=== PATIENT | female | born 1975 | race Caucasian/White ===

== ENCOUNTER 2017-09-22 21:34 | Emergency (ER) | payer MEDICARE, MEDICAID ==
[~2017-09-22] VITALS: Ht 165.1 cm; Wt 199.0 kg
[2017-09-22 21:45] VITALS: BP 183/96; PULSE 96; RESP 18; TEMP 98; O2SAT 95
[2017-09-22] MEDS ORDERED: predniSONE 50 MG TAB PO ONE (22:00)
--- NOTE | 2017-09-22 22:06 | PD ---
HPI Chief Complaint: Respiratory Symptoms Time Seen by Provider: 21:52 Travel History International Travel<30 days: No Contact w/Intl Traveler<30days: No Traveled to known affect area: No History of Present Illness HPI The patient is a 42-year-old female who presents emergency department for shortness of breath, cough, and wheezing. The patient has a history of asthma and cigar use, last smoked a cigar this morning. The patient is a 3 day history of a mostly dry nonproductive cough, wheezing, mild shortness of breath. The patient does have a previous history of pneumonia and bronchitis. She denies any nausea, vomiting, or abdominal pain. However, she does note occasional diarrhea. She denies any dysuria. She denies any history of pulmonary embolus or DVT. The patient does not have a primary physician in the local area and states her albuterol inhaler is . The patient denies any chest pain, acute lower extremity edema, or history of pulmonary was up, DVT, or congestive heart failure. The patient also states she ran out of her high blood pressure medications, cannot recall the name of the medicine, but states it was 10 mg and was a white pill. PFSH Past Medical History Narrative Medical Asthma, hypertension Respiratory: Yes (asha) ?: Not Past Surgical History Narrative Surgical Oral surgery with extraction of teeth Social History Tobacco Use: Yes Allergies-Medications (Allergen,Severity, Reaction): Coded Allergies: azithromycin (Verified Allergy, Unknown, 09/22/17) kidney pains Reported Meds & Prescriptions Reported Meds & Active Scripts Active Reported Triamterene-Hydrochlorothiazide 37.5-25 Mg Cap 1 Cap DAILY Amlodipine (Amlodipine Besylate) 10 Mg Tab 10 Mg PO DAILY Review of Systems Except as stated in HPI: all other systems reviewed are Neg General / Constitutional: No: Fever HENT: Positive: Headaches, No: Lightheadedness Cardiovascular: No: Chest Pain or Discomfort Respiratory: Positive: Cough, Shortness of Breath, Wheezing Gastrointestinal: Positive: Diarrhea, No: Nausea, Vomiting, Abdominal Pain Genitourinary: No: Dysuria Musculoskeletal: No: Myalgias, Edema Physical Exam Narrative GENERAL: Awake, alert, 42-year-old female who is morbidly obese and in no acute respiratory distress. SKIN: Focused skin assessment warm/dry. HEAD: Atraumatic. Normocephalic. EYES: Pupils equal and round. No scleral icterus. No injection or drainage. ENT: No nasal bleeding or discharge. Mucous membranes pink and moist. No erythema or exudate. NECK: Trachea midline. No JVD. CARDIOVASCULAR: Regular rate and rhythm. No murmur appreciated. RESPIRATORY: No accessory muscle use. Clear to auscultation. Breath sounds equal bilaterally. MUSCULOSKELETAL: No obvious deformities. No clubbing. No cyanosis. No edema. Small area of ecchymosis noted over the medial right lower extremity just inferior to the knee. NEUROLOGICAL: Awake and alert. No obvious cranial nerve deficits. Motor grossly within normal limits. Normal speech. PSYCHIATRIC: Appropriate mood and affect; insight and judgment normal. Data Data Last Documented VS Vital Signs Date Time Temp Pulse Resp B/P (MAP) Pulse Ox O2 Delivery O2 Flow Rate FiO2 09/22/17 22:13 96 09/22/17 22:13 96 18 Room Air 09/22/17 21:45 98.0 183/96 (125) Orders Orders Ecg Monitoring (09/22/17 21:59) Oximetry (09/22/17 21:59) Chest, Single Ap (09/22/17 21:59) Albuterol-Ipratropium Neb (Duoneb Neb) (09/22/17 22:00) Prednisone (Deltasone) (09/22/17 22:00) MDM Medical Decision Making Medical Screen Exam Complete: Yes Emergency Medical Condition: Yes Medical Record Reviewed: Yes Interpretation(s) Chest x-ray reveals no acute cardiopulmonary disease. Differential Diagnosis Differential diagnosis includes bronchitis, pneumonia, pulmonary embolism, congestive heart failure, pleural effusion, URI, influenza. Narrative Course The patient's physical examination and history is consistent with most likely bronchitis. Chest x-ray was obtained to rule out pneumonia. The patient was administered prednisone and duo nebs. The patient called her pharmacy, she takes Norvasc 10 mg daily and triamterene 37.5 and hydrochlorothiazide 25 mg daily. I will refill the patient's medications. She is advised to stop smoking and follow-up with a primary physician. Chest x-ray was unremarkable, no evidence of pneumonia. The patient's symptoms did improve with breathing treatments. She is stable for outpatient follow-up. Diagnosis Primary Impression: Bronchitis Additional Impressions: Hypertension Qualified Codes: I10 - Essential (primary) hypertension Medication refill Patient Instructions: General Instructions Additional Instructions: Medications as directed. Follow-up with a primary physician. Return if symptoms worsen or progress. Stop smoking. Med/Other Pt SpecificInfo: Prescription(s) given Scripts Prednisone (Prednisone) 20 Mg Tab 40 MG PO DIRECTED for 4 Days, TAB 0 Refills Prov: Adriano Kemp MD 09/22/17 Sulfamethoxazole-Trimethoprim (Bactrim DS) 800-160 Mg Tab 1 TAB PO BID for Infection, #14 TAB 0 Refills Prov: Adriano Kemp MD 09/22/17 Albuterol 8.5 GM Inh (Proair Hfa 8.5 GM Inh) 90 Mcg/Act Aer 2 PUFF INH Q6H Y for SHORTNESS OF BREATH, #1 INHALER 0 Refills 108 mcg/actuation Prov: Adriano Kemp MD 09/22/17 Triamterene-Hydrochlorothiazide (Triamterene-Hydrochlorothiazide) 37.5-25 Mg Tab 1 TAB PO DAILY, #30 TAB 0 Refills Prov: Adriano Kemp MD 09/22/17 Amlodipine (Norvasc) 10 Mg Tab 10 MG PO DAILY for Blood Pressure Management, #30 TAB 0 Refills Prov: Adriano Kemp MD 09/22/17 Disposition: 01 DISCHARGE HOME Condition: Stable Adriano Kemp MD Sep 22, 2017 22:06
[2017-09-22] MEDS ORDERED: AMLO10TA2 PO (22:12)
[2017-09-22] MEDS ORDERED: TRIA37.53 (22:12)
[2017-09-22 22:13] VITALS: O2SAT 96
[2017-09-22] MEDS: RESP: ALBUTEROL 2.5 MG/IPRATROPIUM 0.5 MG NEB (SCH) INH ×2 (22:25→22:33)
--- NOTE | 2017-09-22 22:32 | RADRPT ---
EXAM DATE/TIME: 09/22/2017 22:18 [facility] COMPARISON: No previous studies available for comparison. INDICATIONS : Coughing and shortness of breath. MEDICAL HISTORY : None. SURGICAL HISTORY : None. ENCOUNTER: Initial ACUITY: 3 days PAIN SCORE: 5/10 LOCATION: Bilateral chest FINDINGS: The lungs are clear without infiltrate, nodule, or mass. There is no appreciable pleural effusion fo r technique. Heart and mediastinum are unremarkable. CONCLUSION: No acute cardiopulmonary disease. Alek Goldberg MD on September 22, 2017 at 22:30 Board Certified Radiologist. This report was verified electronically.
[2017-09-22] MEDS ORDERED: ALBUAER3 INH (22:40)
[2017-09-22] MEDS ORDERED: TRIA37.5 PO (22:40)
[2017-09-22] MEDS ORDERED: AMLO10 PO (22:40)
[2017-09-22] MEDS ORDERED: PRED20 PO (22:40)
[2017-09-22] MEDS ORDERED: BACT800T5 PO (22:40)
== END 2017-09-22 22:55 | disposition home or self-care (01) ==
LOC: PHED 21:34
DX: J40 Bronchitis, not specified as acute or chronic (principal); R19.7 Diarrhea, unspecified; I10 Essential (primary) hypertension; E66.01 Morbid (severe) obesity due to excess calories; J45.909 Unspecified asthma, uncomplicated; Z76.0 Encounter for issue of repeat prescription; Z72.0 Tobacco use; Z79.899 Other long term (current) drug therapy
CPT/HCPCS: 71045; 94640; 94664; 99284; J7512

== ENCOUNTER 2017-11-29 22:02 | Emergency (ER) | payer MEDICARE, MEDICAID ==
[~2017-11-29] VITALS: Ht 165.1 cm; Wt 194.4 kg
[~2017-11-29 22:02] MED LIST: ALBUAER3 INH; AMLO10 PO; AMLO10TA2 PO; BACT800T5 PO; PRED20 PO; TRIA37.5 PO; TRIA37.53
[2017-11-29 22:21] VITALS: BP 205/103; PULSE 100; RESP 20; TEMP 98.5; O2SAT 97
== END 2017-11-29 22:33 | disposition left against medical advice (07) ==
LOC: PHED 22:02
DX: S99.912A Unspecified injury of left ankle, initial encounter (principal); X58.XXXA Exposure to other specified factors, initial encounter; Z53.21 Procedure and treatment not carried out due to patient leaving prior to being seen by health care provider
CPT/HCPCS: 99281